=== PATIENT | male | born 1990 | race Caucasian/White ===

== ENCOUNTER → 2018-07-16 | Outpatient (CLI) | payer OTHER ==
[2018-07-16 16:59] LABS: ALBUMIN 3.9 GM/DL (3.2-5.2); ALT/SGPT 45 U/L (12-78); BILIRUBIN,TOTAL 0.8 MG/DL (0.2-1.0); BLOOD UREA NITROGEN 13 MG/DL (7-18); CALCIUM LEVEL 8.6 MG/DL (8.5-10.1); CARBON DIOXIDE LEVEL 30 MEQ/L (21-32); CHLORIDE LEVEL 107 MEQ/L (98-107); CREATININE FOR GFR 1.06 MG/DL (0.70-1.30); GLOMERULAR FILTRATION RATE > 60.0 (>60); GLUCOSE, FASTING 84 MG/DL (70-100); LIPASE 120 U/L (73-393); POTASSIUM SERUM 4.2 MEQ/L (3.5-5.1); SODIUM LEVEL 142 MEQ/L (136-145); TOTAL PROTEIN 6.7 GM/DL (6.4-8.2)
[2018-07-16 17:09] LABS: BASO % 0.4 % (0.0-1.0); EOS # 0.3 10^3/uL (0.0-0.50); EOS % 3.9 % (0.0-3.0); HEMATOCRIT 43.1 % (42.0-52.0); HEMOGLOBIN 15.1 g/dl (13.5-17.5); LYMPH # 2.4 10^3/uL (1.5-6.5); LYMPH % 32.2 % (24.0-44.0); MEAN CORPUSCULAR HEMOGLOBIN 29.6 pg (27.0-33.0); MEAN CORPUSCULAR VOLUME 84.5 fl (80.0-96.0); MONO # 0.7 10^3/uL (0.0-0.8); MONO % 8.7 % (0.0-5.0); NEUTROPHILS # 4.1 10^3/uL (1.8-7.7); NEUTROPHILS % 54.5 % (36.0-66.0); PLATELET COUNT, AUTOMATED 264 10^3/uL (150-450); WHITE BLOOD COUNT 7.5 10^3/uL (4.0-10.0)
[2018-07-18 15:10] LABS: EBV VIRAL CAPSID AG IgM <36.0 U/mL (0.0-35.9)
== END ==
LOC: M WUC 14:01
PROVIDERS: ATTEND Physician Assistant
DX: R10.812 Left upper quadrant abdominal tenderness (principal)

== ENCOUNTER → 2018-07-16 | Outpatient (REF) | payer OTHER | LOC: M LAB REF 16:17 | DX: R10.812 Left upper quadrant abdominal tenderness (principal) | CPT/HCPCS: 87086 ==

== ENCOUNTER → 2018-07-21 | Outpatient (CLI) | payer OTHER ==
--- NOTE | 2018-07-21 07:57 | REP ---
Clinical: Left upper quadrant pain. Technique: Real time lynn scale and color evaluation using curved array transducer. Findings: The spleen is minimally enlarged measuring 13.5 x 12.3 x 5.5 cm (splenic index equals 913) with normal contour and echotexture. No focal splenic lesions are identified. Left kidney is normal in reniform shape without hydronephrosis and measures 12.4 x 6.1 x 6.1 cm. No ascites. Impression: Mild splenomegaly without focal splenic lesion identified. Electronically Signed by Javier Ayala MD 07/21/2018 07:50 A
== END ==
LOC: M RAD 07:11
PROVIDERS: ATTEND Physician Assistant
DX: R16.1 Splenomegaly, not elsewhere classified (principal); R10.812 Left upper quadrant abdominal tenderness

== ENCOUNTER 2018-12-17 14:07 | Day surgery (SDC) | payer OTHER ==
[~2018-12-17] VITALS: Ht 182.9 cm; Wt 140.9 kg
[2018-12-17] MEDS ORDERED: MORPHINE 4 MG/ML 1ML VIAL/SYRINGE (J2270) IV ONE ×2 (14:30→16:00)
[2018-12-17] MEDS ORDERED: ONDANSETRON 4MG/2ML VIAL (J2405) IV ONE (14:30)
[2018-12-17] MEDS ORDERED: PIPERACILLIN/TAZOBACTAM SOD 3.375 GM in D5W MINI-BAG PLUS 50 ML IV ONE (14:30)
[2018-12-17] MEDS ORDERED: NS 1,000 ML IV SCH (14:30)
[2018-12-17] MEDS ORDERED: MORPHINE 4 MG/ML 1ML VIAL/SYRINGE (J2270) IV PRN (16:15)
[2018-12-17] MEDS ORDERED: KETOROLAC 30 MG/ML VIAL (J1885) IV PRN (16:15)
[2018-12-17] MEDS ORDERED: ONDANSETRON 4MG/2ML VIAL (J2405) IV PRN ×2 (16:15→21:30)
[2018-12-17] MEDS ORDERED: DRIS50003 PO (17:19)
[2018-12-17] MEDS ORDERED: BUPIVACAINE HCL 0.25% 30 ML VIAL As Ordered ONE (19:03)
[2018-12-17] MEDS ORDERED: GLYCOPYRROLATE INJ 0.2 MG/ML 2 ML VIAL As Ordered ONE (19:07)
[2018-12-17] MEDS ORDERED: MIDAZOLAM INJ 2 MG/2 ML VIAL (J2250) As Ordered ONE (19:08)
[2018-12-17] MEDS ORDERED: dexameTHASONE 4 MG/ML 1ML VIAL (J1100) As Ordered ONE (19:08)
[2018-12-17] MEDS ORDERED: ONDANSETRON 4MG/2ML VIAL (J2405) As Ordered ONE (19:08)
[2018-12-17] MEDS ORDERED: LIDOCAINE 2% INJ 100 MG/5 ML SDV (FOR ANES.) As Ordered ONE (19:08)
[2018-12-17] MEDS ORDERED: PROPOFOL 200 MG/20 ML VIAL As Ordered ONE (19:08)
[2018-12-17] MEDS ORDERED: fentaNYL 100 MCG/2 ML INJECTION (J3010) As Ordered ONE ×2 (19:08→20:26)
[2018-12-17] MEDS ORDERED: KETOROLAC 60 MG/2 ML VIAL (J1885) As Ordered ONE (19:08)
[2018-12-17] MEDS ORDERED: NEOSTIGMINE 10 MG/10 ML VIAL (J2710) As Ordered ONE (19:08)
[2018-12-17] MEDS ORDERED: ROCURONIUM BROMIDE 50 MG/5 ML VIAL As Ordered ONE (19:12)
[2018-12-17] MEDS ORDERED: ZOSYN 3.375 GM VIAL (J2543) As Ordered ONE (20:02)
[2018-12-17] MEDS ORDERED: NORCO, ANEXSIA 5/325MG TABLET (HYDROcodone/ACETAMINOPHEN) PO PRN (21:30)
[2018-12-17] MEDS ORDERED: PERCOCET 5MG/325MG TAB PO PRN (21:30)
[2018-12-17] MEDS ORDERED: LR 1,000 ML IV SCH (21:30)
[2018-12-17] MEDS ORDERED: ACETAMINOPHEN TAB 650MG DOSE (2X325MG) PO PRN (21:30)
[2018-12-17] MEDS ORDERED: fentaNYL 100 MCG/2 ML INJECTION (J3010) IV PRN (21:30)
[2018-12-17] MEDS ORDERED: PERCOCET 5MG/325MG TAB As Ordered ONE (21:35)
[2018-12-17] MEDS: LR 1,000 ML IV SCH (22:00)
[2018-12-17 22:15] VITALS: BP 137/87
[2018-12-17 22:45] VITALS: BP 140/87
[2018-12-17 23:45] VITALS: BP 139/83
[2018-12-18 00:45] VITALS: BP 135/81
[2018-12-18 04:00] VITALS: BP 130/81
[2018-12-18] MEDS: LR 1,000 ML IV SCH ×2 (05:51→08:26)
[2018-12-18 06:45] VITALS: BP 116/65
[2018-12-18 10:00] VITALS: BP 120/80
[2018-12-18] MEDS ORDERED: HYDR-4571 PO (10:44)
--- NOTE | 2018-12-18 17:36 | RO ---
DATE OF PROCEDURE: 12/17/2018 PREOPERATIVE DIAGNOSIS: Acute appendicitis. POSTOPERATIVE DIAGNOSIS: Acute appendicitis. PROCEDURE PERFORMED: Laparoscopic appendectomy. SURGEON: Omid Jung MD MILITARY EQUIPMENT SPECIALIST: ANESTHESIA: General. INDICATIONS FOR THE PROCEDURE: Patient is a 28-year-old man who presented to the emergency department with a roughly 3-day history of worsening abdominal pain. This had initially been fairly vague and gave him a sensation of fullness and a sense of constipation. The pain worsened and became more localized to the right midabdomen. He was seen in an [facility] and a CT scan showed inflammation of the appendix with evidence for an appendicolith in the base of the appendix. He was referred to the emergency department and is now for a laparoscopic appendectomy. DESCRIPTION OF PROCEDURE: The patient was brought to the operating room and placed on the table in a supine position. He was placed under general endotracheal anesthesia. The patient's abdomen was prepped and draped in a sterile fashion. 0.25% Marcaine was infiltrated at the trocar sites. A short supraumbilical midline incision was made and deepened through the subcutaneous tissues. The fascia was opened sharply and the peritoneum bluntly, and a Kusum cannula was inserted. The abdomen was insufflated with carbon dioxide gas. The patient was tilted to a slight Trendelenburg position and rolled to the left. A 5 mm trocar was placed low in the midline and a second 5 mm trocar was placed in left lower quadrant. Graspers were inserted. The cecum was somewhat full of air making exposure a little more difficult. There were a few adhesions, filmy in nature, lateral to the cecum and as these were broken apart, the inflamed appendix was identified lying in the paracolic gutter adjacent to the terminal ileum. This was grasped and elevated. The appendix was adherent lateral and slightly posterior to the cecum, and these attachments were divided initially using the hook cautery. It was possible to create an opening through the mesoappendix and a vascular load of the 45 mm linear cutter stapler was placed across the mesoappendix. Some additional dissection was necessary to expose the base of the appendix. A small artery was identified and this was controlled. The base of the appendix was stapled with a load of the 45 mm linear cutter using blue suraj. The appendix was placed in an Endopouch. The right lower quadrant and paracolic gutter were irrigated and inspected, and there was no evidence of bleeding. The patient was returned to a flat position. The abdomen was deflated and the trocars were removed. The appendix was recovered through the supraumbilical site. This was sent for permanent pathology. The fascia was closed with interrupted simple sutures of #2-0 Vicryl. The skin incisions were all closed with buried #5-0 Vicryl and Steri-Strips. Light dressings were applied. The patient tolerated the procedure well without apparent complication. He was awakened in the operating room, extubated and moved to the recovery room in stable condition.
--- NOTE | 2018-12-19 00:17 | IPN ---
DATE: 12/18/2018 HISTORY: The patient is now postop day #1 from laparoscopic appendectomy for acute appendicitis. He tolerated clear liquids overnight and was advanced to a regular diet early in the morning and has tolerated this. He has been up ambulatory and has voided without difficulty and has been passing some flatus. He is having some mild to moderate pain at the time of his visit and has taken one Garfield tablet since surgery. Vital signs: Show that he has been afebrile since about midnight. His pulse is in the 70s to 80s and his blood pressure is good. Intake and output: He has had an excellent oral intake of liquids and has been voiding without difficulty. PHYSICAL EXAMINATION: The patient is alert and oriented. He appears quite comfortable. Heart and lung exams are unremarkable. The abdomen remains obese. His dressings are clean and dry. He has some bowel sounds present and no undue tenderness on palpation of the abdomen. The patient has no new laboratory studies today. IMPRESSION: Acute appendicitis, status post appendectomy. PLAN: The patient had been progressing well and will be discharged home. He was counseled that he can take a regular diet. He can shower 24 hours after the surgery, but was advised to try to avoid disturbing the Steri-Strips in place on his incision. He is to follow up in my office in approximately 10-14 days. He should avoid any strenuous activity or heavy lifting greater than 25 pounds for 2 weeks. He will be provided a prescription for a small number of Garfield tablets to take on an as-needed basis for moderate to severe pain and can otherwise take Tylenol or [id number] nonsteroidal anti-inflammatories for pain. He should call the office for any problems.
== END 2018-12-18 12:35 | disposition home or self-care (01) ==
LOC: M ED 14:07 → M SDC 16:02 → M MS5PR 21:50 → M SDC 12-18 12:35
PROVIDERS: ATTEND Surgery
DX: K35.890 Other acute appendicitis without perforation or gangrene (principal); G47.30 Sleep apnea, unspecified; K21.9 Gastro-esophageal reflux disease without esophagitis
CPT/HCPCS: 44970; 88304; 96361; 96374; 96375; 96376; 99285; J1100; J1885; J2250; J2270; J2405; J2543; J2710; J3010

== ENCOUNTER → 2018-12-17 | Outpatient (CLI) | payer OTHER ==
[~2018-12-17] MED LIST: DRIS50003 PO; HYDR-4571 PO
[2018-12-17 13:05] LABS: BASO % 0.3 % (0.0-1.0); EOS # 0.2 10^3/uL (0.0-0.50); EOS % 1.9 % (0.0-3.0); HEMATOCRIT 46.1 % (42.0-52.0); LYMPH # 2.3 10^3/uL (1.5-6.5); LYMPH % 18.7 % (24.0-44.0); MEAN CORPUSCULAR HEMOGLOBIN 29.3 pg (27.0-33.0); MEAN CORPUSCULAR HGB CONC 34.7 g/dl (32.0-36.5); MEAN CORPUSCULAR VOLUME 84.3 fl (80.0-96.0); MONO % 8.3 % (0.0-5.0); NEUTROPHILS # 8.7 10^3/uL (1.8-7.7); NEUTROPHILS % 70.5 % (36.0-66.0); PLATELET COUNT, AUTOMATED 258 10^3/uL (150-450); RED BLOOD COUNT 5.47 10^6/uL (4.30-6.10); WHITE BLOOD COUNT 12.4 10^3/uL (4.0-10.0)
[2018-12-17 13:11] LABS: ALBUMIN 4.1 GM/DL (3.2-5.2); ALT/SGPT 46 U/L (12-78); AMYLASE 22 U/L (25-115); BLOOD UREA NITROGEN 15 MG/DL (7-18); CALCIUM LEVEL 9.3 MG/DL (8.5-10.1); CARBON DIOXIDE LEVEL 28 MEQ/L (21-32); CHLORIDE LEVEL 107 MEQ/L (98-107); CREATININE FOR GFR 1.07 MG/DL (0.70-1.30); GLOMERULAR FILTRATION RATE > 60.0 (>60); GLUCOSE, FASTING 93 MG/DL (70-100); LIPASE 106 U/L (73-393); POTASSIUM SERUM 4.5 MEQ/L (3.5-5.1); SODIUM LEVEL 139 MEQ/L (136-145)
--- NOTE | 2018-12-17 17:11 | REP ---
KUB, ONE VIEW: HISTORY: Abdominal pain. A small amount of air is present in the intestine. There are no air fluid levels or dilated loops of intestine. There is no pneumoperitoneum. A mild amount of stool is present in the colon. IMPRESSION: Nonspecific bowel gas pattern. Electronically Signed by Jose Oliver MD 12/17/2018 05:12 P
== END ==
LOC: M WUC 10:01
PROVIDERS: ATTEND Physician Assistant
DX: R10.11 Right upper quadrant pain (principal); R10.31 Right lower quadrant pain

== ENCOUNTER → 2018-12-17 | Outpatient (CLI) | payer OTHER ==
[~2018-12-17] MED LIST changes: +GASTROGRAFIN SOLUTION 30ML (Q9963) As Ordered ONE; +ISOVUE-370 76% 100ML VIAL (Q9967) As Ordered ONE; +ONDANSETRON 4MG/2ML VIAL (J2405) As Ordered ONE
--- NOTE | 2018-12-17 14:14 | REP ---
CT abdomen and pelvis with IV and oral contrast: History: Right upper and lower quadrant pain. CT contrast dose: 100 ml of intravenous Isovue V 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 Normal bowel gas pattern is seen. The lung bases are clear on axial CT images. No infiltrate is seen. There is no evidence of pleural effusion or upper abdominal ascites. The liver and spleen are normal in size and homogeneous in texture. There is mild diffuse fatty infiltration of the liver with some fat sparing near the gallbladder. No adrenal lesion is seen. Pancreas is unremarkable. Gallbladder shows no abnormality. The kidneys enhance symmetrically and are morphologically intact. No hydronephrosis is seen. No urinary tract calculus is observed. There are CT findings consistent with acute appendicitis. A retrocecal appendix is noted. There is a 17 mm by 7 mm radiodense structure in the lumen of the appendix at its origin from the cecum consistent with an appendicolith. The remainder the appendix is dilated, fluid-filled with mural thickening and enhancement as well as periappendiceal edema. No abscess or free air is seen. The appendix courses just lateral to a vertically oriented segment of distal ileum. Seminal vesicles, prostate and urinary bladder are unremarkable. No abdominal wall defect is seen. Impression: CT findings consistent with acute appendicitis with appendicolith and periappendiceal stranding. The appendix is dilated and its wall is thickened. No abscess or free air is seen. Electronically Signed by Ed Pate MD 12/17/2018 08:01 P
== END ==
LOC: M RAD 11:42
PROVIDERS: ATTEND Physician Assistant
DX: K38.0 Hyperplasia of appendix (principal)
CPT/HCPCS: 74177; Q9963; Q9967

== ENCOUNTER → 2020-03-21 | Outpatient (REF) | payer OTHER ==
[~2020-03-21] MED LIST changes: -GASTROGRAFIN SOLUTION 30ML (Q9963) As Ordered ONE; -ISOVUE-370 76% 100ML VIAL (Q9967) As Ordered ONE; -ONDANSETRON 4MG/2ML VIAL (J2405) As Ordered ONE
== END ==
LOC: M LAB REF 08:38
PROVIDERS: ATTEND Physician Assistant Medical
DX: Z11.59 Encounter for screening for other viral diseases (principal)

== ENCOUNTER → 2020-09-04 | Outpatient (REF) | payer OTHER | LOC: M LAB REF 21:16 | PROVIDERS: ATTEND Physician Assistant Medical | DX: Z11.59 Encounter for screening for other viral diseases (principal) ==

== ENCOUNTER → 2022-06-14 | Outpatient (CLI) | payer OTHER | LOC: M PLAIMG 11:04 | PROVIDERS: ATTEND Internal Medicine | DX: M54.2 Cervicalgia (principal) ==